=== PATIENT | female | born 1975 | race Caucasian/White ===

== ENCOUNTER 2017-06-29 09:41 | Outpatient (CLI) | payer OTHER | END 2017-06-29 09:42 | disposition home or self-care (01) | LOC: BICMAMMO 09:41 | PROVIDERS: ATTEND Obstetrics & Gynecology | DX: Z12.31 Encounter for screening mammogram for malignant neoplasm of breast (principal) | CPT/HCPCS: 77063; 77067 ==

== ENCOUNTER 2018-11-25 14:18 | Outpatient (CLI) | payer OTHER ==
--- NOTE | 2018-11-25 16:26 | RAD ---
THREE VIEWS OF THE RIGHT FOOT: 11/25/18 COMPARISON: None. HISTORY: Right foot pain for the past three weeks. FINDINGS: Three views of the right foot shows an oblique lucency through the proximal phalanx of the second toe . This is only seen on the anterior radiograph but not on the other views. The cortex is not obviousl y disrupted. This could represent a remote healed fracture. No other abnormality is seen. No degenera tive changes are present. IMPRESSION: Possible remote healed fracture of the proximal phalanx of the second toe. An acute on chronic fractu re cannot be excluded. Correlate with point tenderness in this location. POS: [facility]
== END 2018-11-25 14:19 | disposition home or self-care (01) ==
LOC: SCSRAD 14:18
PROVIDERS: ATTEND Family Medicine
DX: M79.674 Pain in right toe(s) (principal)

== ENCOUNTER 2024-05-02 14:44 | Outpatient (CLI) | payer BC | END 2024-05-02 14:45 | disposition home or self-care (01) | LOC: SCSMRI 14:44 | PROVIDERS: ATTEND Otolaryngology Plastic Surgery within the Head & Neck | DX: H90.3 Sensorineural hearing loss, bilateral (principal); R90.89 Other abnormal findings on diagnostic imaging of central nervous system | CPT/HCPCS: 70553; 76376 ==